=== PATIENT | male | born 1985 | race Two or more races ===

== ENCOUNTER 2017-06-23 13:01 | Emergency (ER) | payer MEDICAID, OTHER ==
[~2017-06-23] VITALS: Ht 180.3 cm; Wt 83.9 kg
[2017-06-23 13:50] VITALS: BP 131/73
--- NOTE | 2017-06-23 13:50 | NUR ---
Patient discharged to home in stable conditon. Written and verbal after care instructions given. Patient verbalizes understanding of instructions.
== END 2017-06-23 14:05 | disposition home or self-care (01) ==
LOC: ER 13:07
DX: S62.92XA Unspecified fracture of left hand, initial encounter for closed fracture (principal); W50.0XXA Accidental hit or strike by another person, initial encounter; Y93.89 Activity, other specified; Y92.89 Other specified places as the place of occurrence of the external cause; Y99.8 Other external cause status
CPT/HCPCS: 29125; 73130; 99284; A4663